=== PATIENT | female | born 1990 | race Two or more races ===

== ENCOUNTER 2024-04-29 19:24 | Emergency (ER) | payer MEDICAID, SELFPAY ==
[2024-04-29 19:27] VITALS: BP 176/103; PULSE 89; TEMP 36.8; O2SAT 97; BMI 39.8
[2024-04-29 19:37] VITALS: O2SAT 98
--- NOTE | 2024-04-29 19:52 | ED.ABDPAIN1 ---
HPI - Abdominal Pain General Chief Complaint: Abdominal Pain Stated Complaint: ABDOMINAL PAIN Time Seen by Provider: 04/29/24 19:27 Source: patient Mode of arrival: walk-in Limitations: no limitations History of Present Illness HPI narrative: 33-year-old female presents for abdominal pain. It is in her left lower quadrant and she has had this for about 10 to 12 days. She thought she was constipated so she took a laxative and she had a bowel movement and the pain did not go away. No vaginal bleeding or dysuria. No diarrhea or fever or injury or vomiting. The pain seems to be continuous. Related Data Home Medications ?Medication ?Instructions ?Recorded ?Confirmed metoprolol tartrate 100 mg tablet mg 04/29/24 Previous Rx's ?Medication ?Instructions ?Recorded acetaminophen 300 mg-codeine 30 mg 1 tab PO Q6H PRN pain 5 days #20 04/29/24 tablet tabs ibuprofen 800 mg tablet 800 mg PO Q8H PRN pain #20 tabs 04/29/24 Allergies Allergy/AdvReac Type Severity Reaction Status Date / Time No Known Drug Allergies Allergy Verified 04/29/24 19:32 Review of Systems ROS Narrative A ten point review of systems is negative except as noted above. PFSH PFSH Social History Little interest or pleasure in doing things: not at all Feeling down, depressed, or hopeless: not at all Exam Narrative Exam Narrative: Nurses note and vital signs reviewed and patient is not hypoxic. General: The patient appears in no apparent distress. Skin: Warm, dry, no pallor noted. There is no rash noted. Head: Normocephalic, atraumatic Eye: Normal conjunctiva, no drainage Ears, Nose, Mouth, and Throat: oral mucosa is moist. Nares patent. Cardiovascular: Regular Rate and Rhythm Respiratory: Patient is in no distress, no accessory muscle use, lungs are clear to auscultation, no wheezing, rales or rhonchi Back: non-tender GI: Soft, nondistended. Bowel sounds are normal. She has tenderness in the left lower quadrant without mass Musculoskeletal: The patient has no evidence of calf tenderness, no pitting edema, symmetrical pulses noted bilaterally Neurological: A&O, normal speech Psychiatric: Cooperative Constitutional Vital Signs, click to edit/add: Last Vital Signs Temp 98.2 F 04/29/24 19:27 Pulse 89 04/29/24 19:27 Resp 18 04/29/24 19:27 BP 176/103 H 04/29/24 19:27 Pulse Ox 98 04/29/24 19:37 O2 Del Method Room Air 04/29/24 19:37 Course Vital Signs Vital signs: Vital Signs Temperature 98.2 F 04/29/24 19:27 Pulse Rate 89 04/29/24 19:27 Respiratory Rate 18 04/29/24 19:27 Blood Pressure 176/103 H 04/29/24 19:27 Pulse Oximetry 97 04/29/24 19:27 Oxygen Delivery Method Room Air 04/29/24 19:27 Temperature 98.2 F 04/29/24 19:27 Pulse Rate 89 04/29/24 19:27 Respiratory Rate 18 04/29/24 19:27 Blood Pressure 176/103 H 04/29/24 19:27 Pulse Oximetry 98 04/29/24 19:37 Oxygen Delivery Method Room Air 04/29/24 19:37 MDM - Abdominal Pain MDM Narrative Medical decision making narrative: Blood work and urinalysis are essentially negative. CT scan findings are discussed with the patient and she will be prescribed pain medicine and referred to general surgery for follow-up. Treatment diagnosis and follow-up were discussed with the patient. She gives no history of any injury and I have no clinical suspicion of an infection. Differential Diagnosis Differential diagnosis: Likely abdominal pain, constipation and diverticulitis Lab Data Attestation: I reviewed the patient's lab results. Labs: Lab Results 04/29/24 04/29/24 Range/Units 19:38 19:50 WBC 9.9 (4.0-11.0) 10^3/uL RBC 4.88 (4.20-5.40) 10^6/uL Hgb 12.3 (12.0-16.0) g/dL Hct 38.3 (36.0-48.0) % MCV 78.5 L (81.0-99.0) fL MCH 25.2 L (26.7-34.0) pg MCHC 32.1 (29.9-35.2) g/dL RDW 14.6 (11.0-15.0) % Plt Count 431 (150-450) 10^3/uL MPV 9.5 (9.5-13.5) fL Neut % (Auto) 61.5 (43.0-75.0) % Lymph % (Auto) 32.0 (20.5-60.0) % [place] % (Auto) 4.1 (1.7-12.0) % Eos % (Auto) 1.7 (0.9-7.0) % Baso % (Auto) 0.5 (0.2-2.0) % Neut # (Auto) 6.1 (1.4-6.5) 10^3/uL Lymph # (Auto) 3.2 (1.2-3.8) 10^3/uL [place] # (Auto) 0.4 (0.3-0.8) 10^3/uL Eos # (Auto) 0.2 (0.0-0.7) 10^3/uL Baso # (Auto) 0.1 (0.0-0.1) 10^3/uL Abs Immat Gran (auto) 0.02 (0.00-0.03) 10^3/uL Imm/Tot Granulo (auto) 0.2 (0.0-0.5) % Sodium 139 (136-145) mmol/L Potassium 3.3 L (3.5-5.1) mmol/L Chloride 102 (98-107) mmol/L Carbon Dioxide 25.6 (21.0-32.0) mmol/L Anion Gap 14.7 BUN 8.0 (7.0-18.0) mg/dL Creatinine 0.86 (0.55-1.02) mg/dL Est GFR ( Amer) >60 (>=60 mL/min/1.73m^2) Est GFR (Non-Af Amer) >60 (>=60 mL/min/1.73m^2) BUN/Creatinine Ratio 9.3 Glucose 113 H (74-106) mg/dL Calcium 9.2 (8.5-10.1) mg/dL Serum HCG, Qual Negative (NEGATIVE) Urine Color Lt. yellow (YELLOW) Urine Clarity Clear (CLEAR) Urine pH 6.0 (5.0-9.0) Ur Specific [place] >=1.030 A (1.005-1.025) Urine Protein Trace (NEG/TRACE) mg/dL Urine Glucose (UA) Negative (NEGATIVE) mg/dL Urine Ketones Negative (NEGATIVE) mg/dL Urine Occult Blood Trace-i (NEGATIVE) Urine Nitrite Negative (NEGATIVE) Urine Bilirubin Negative (NEGATIVE) Urine Urobilinogen 0.2 (0.2-1.0) EU/dL Ur Leukocyte Esterase Negative (NEGATIVE) Urine RBC 0-2 (0-2) #/HPF Urine WBC 0-2 A (NONE SEEN) #/HPF Ur Squamous Epith Cells Few A (NONE/RARE) #/LPF Urine Crystals None seen (None Seen) #/HPF Urine Bacteria Trace A (NONE SEEN) #/HPF Urine Casts None seen (NONE SEEN) #/LPF Urine Mucus Trace A (NONE SEEN) Ur Culture Indicated? No Imaging Data CT scan - abdomen: Radiologist's impression: ITS Impressions Abdomen/Pelvis CT 04/29/24 20:51 IMPRESSION: 1. Nonobstructing 4 mm left lower pole stone. 2. There does appear to be heterogeneous appearance of the inferior left rectus abdominis muscle. Reference image 106. A possible 1.4 cm cystic lesion seen within the muscle. This could represent a hematoma or plegmon. Other etiologies are also possible with malignancy not categorically excluded but felt to be unlikely.. The etiology of this is not well delineated and further evaluation is advised with ultrasound to determine the internal characteristics. Electronically authenticated by: KASSANDRA ROBLES Date: 04/29/2024 23:02 Discharge Plan Discharge Chief Complaint: Abdominal Pain Clinical Impression: Abdominal wall pain Patient Disposition: Home, Self-Care Time of Disposition Decision: 23:09 Condition: Good Mode of Transportation: Private Vehicle Prescriptions / Home Meds: New acetaminophen-codeine 300-30 mg tablet 1 tab PO Q6H PRN (Reason: pain) 5 Days Qty: 20 0RF ibuprofen 800 mg tablet 800 mg PO Q8H PRN (Reason: pain) Qty: 20 0RF No Action metoprolol tartrate 100 mg tablet Print Language: Burundian Instructions: Abdominal Pain (ED) Referrals: Marvin Ramos MD [Physician] - 1 week PhysicianLuda-MD Estephania [Physician] - 1 week
[2024-04-29 19:58] LABS: Basophils Absolute Auto 0.1 10^3/uL (0.0-0.1); Basophils Percent Auto 0.5 % (0.2-2.0); Eosinophils Absolute Auto 0.2 10^3/uL (0.0-0.7); Eosinophils Percent Auto 1.7 % (0.9-7.0); Hematocrit 38.3 % (36.0-48.0); Hemoglobin 12.3 g/dL (12.0-16.0); Immature Granulocytes Abs Auto 0.02 10^3/uL (0.00-0.03); Immature Granulocytes Pct Auto 0.2 % (0.0-0.5); Lymphocytes Absolute Auto 3.2 10^3/uL (1.2-3.8); Mean Corpuscular HGB Conc 32.1 g/dL (29.9-35.2); Mean Corpuscular Hemoglobin 25.2 pg (26.7-34.0); Mean Corpuscular Volume 78.5 fL (81.0-99.0); Mean Platelet Volume 9.5 fL (9.5-13.5); Monocytes Absolute Auto 0.4 10^3/uL (0.3-0.8); Monocytes Percent Auto 4.1 % (1.7-12.0); Neutrophils Absolute Auto 6.1 10^3/uL (1.4-6.5); Neutrophils Percent Auto 61.5 % (43.0-75.0); Platelet Count 431 10^3/uL (150-450); Red Blood Count 4.88 10^6/uL (4.20-5.40); Red Cell Distribution Width 14.6 % (11.0-15.0); White Blood Count 9.9 10^3/uL (4.0-11.0)
[2024-04-29 20:02] LABS: Bilirubin Urine NEGATIVE (NEGATIVE); Blood Urine TRACE-I (NEGATIVE); Clarity Urine CLEAR (CLEAR); Color Urine LT. YELLOW (YELLOW); Glucose Urine UA NEGATIVE (NEGATIVE); Ketones Urine NEGATIVE (NEGATIVE); Leukocyte Esterase Urine NEGATIVE (NEGATIVE); Nitrite Urine NEGATIVE (NEGATIVE); Protein Urine TRACE mg/dL (NEG/TRACE); Specific Gravity Urine >=1.030 (1.005-1.025); Urobilinogen Urine 0.2 EU/dL (0.2-1.0)
[2024-04-29 20:08] LABS: Anion Gap 14.7; BUN Creatinine Ratio 9.3; Calcium 9.2 mg/dL (8.5-10.1); Carbon Dioxide 25.6 mmol/L (21.0-32.0); Chloride 102 mmol/L (98-107); Estimated GFR (African America >60 (>=60 mL/min/1.73m^2); Estimated GFR (Non-African Ame >60 (>=60 mL/min/1.73m^2); Glucose 113 mg/dL (74-106); Potassium 3.3 mmol/L (3.5-5.1); Sodium 139 mmol/L (136-145)
[2024-04-29 20:10] LABS: Bacteria Urine TRACE #/HPF (NONE SEEN); Cast Seen? NONE SEEN #/LPF (NONE SEEN); Crystals Seen? None Seen #/HPF (None Seen); Mucus Urine TRACE (NONE SEEN); RBC Urine 0-2 #/HPF (0-2); Squamous Epithelial Cell Urine FEW #/LPF (NONE/RARE); Urine Culture Indicated NO; WBC Urine 0-2 #/HPF (NONE SEEN)
[2024-04-29 20:17] LABS: HCG Qualitative NEGATIVE (NEGATIVE); Internal Control Within Normal Limits
--- NOTE | 2024-04-29 20:51 | CT_ITS ---
The [address] [address] Patient Name: MICHAEL MALCOLM MRN: [id number] date: 1990 Sex: F Assigned Patient Location: ER Current Patient Location: Accession/Order Number: [id number] Exam Date: 04/29/2024 21:27 Report Date: 04/29/2024 23:02 At the request of: BECCA EL Procedure: CT abdomen pelvis w con EXAM: CT Abdomen and Pelvis With Intravenous Contrast CLINICAL INDICATION: Left lower quadrant pain TECHNIQUE: Axial computed tomography images of the abdomen and pelvis with intravenous contrast. This CT exam was performed using one or more of the following dose reduction techniques: automated exposure control, adjustment of the mA and/or kV according to patient size, and/or use of iterative reconstruction technique. COMPARISON: February 2020 FINDINGS: LUNG BASES: Unremarkable. No mass. No consolidation. ABDOMEN: LIVER: Unremarkable. No mass. GALLBLADDER AND BILE DUCTS: Unremarkable. No calcified stones. No ductal dilation. PANCREAS: Unremarkable. No mass. No ductal dilation. SPLEEN: Unremarkable. No splenomegaly. ADRENALS: Unremarkable. KIDNEYS AND URETERS: 4 mm left lower pole stone STOMACH AND BOWEL: Unremarkable. No obstruction. No mucosal thickening. PELVIS: APPENDIX: The appendix is not definitely seen. No secondary signs of appendicitis. BLADDER: Unremarkable. No mass. REPRODUCTIVE: Unremarkable as visualized. ABDOMEN and PELVIS: INTRAPERITONEAL SPACE: Unremarkable. No free air. No significant fluid collection. BONES/JOINTS: No acute fracture. No dislocation. SOFT TISSUES: There does appear to be heterogeneous appearance of the inferior left rectus abdominis muscle. Reference image 106. A possible 1.4 cm cystic lesion seen within the muscle. Small umbilical hernia containing fat. VASCULATURE: Unremarkable. No abdominal aortic aneurysm. LYMPH NODES: Unremarkable. No enlarged lymph nodes. CT/CT abdomen pelvis w con IMPRESSION: 1. Nonobstructing 4 mm left lower pole stone. 2. There does appear to be heterogeneous appearance of the inferior left rectus abdominis muscle. Reference image 106. A possible 1.4 cm cystic lesion seen within the muscle. This could represent a hematoma or plegmon. Other etiologies are also possible with malignancy not categorically excluded but felt to be unlikely.. The etiology of this is not well delineated and further evaluation is advised with ultrasound to determine the internal characteristics. Electronically authenticated by: KASSANDRA ROBLES Date: 04/29/2024 23:02
[2024-04-29] MEDS: ACETAMINOPHEN 300 MG/ 30 MG CODEINE TABLET 1 TAB PO (23:38)
[2024-04-29 23:40] VITALS: BP 140/104; PULSE 62; O2SAT 98
== END 2024-04-29 23:42 | disposition home or self-care (01) ==
PROVIDERS: Emergency Provider Emergency Medicine; PCP Family Medicine
DX: R10.32 Left lower quadrant pain (principal); R93.5 Abnormal findings on diagnostic imaging of other abdominal regions, including retroperitoneum
CPT/HCPCS: 36415; 74177; 80048; 81001; 84703; 85025; 99285; Q9967

== ENCOUNTER 2025-01-23 20:05 | Emergency (ER) | payer MEDICAID, SELFPAY ==
--- OUTSIDE RECORDS SUMMARY | 2024-05-01 05:45 | XMS_ITS ---
Author Organization [facility] in [place] Address [address] [place] [address] Care Team Providers Care Wood Caulker Name Role Phone Eduardo Gonzalez Primary Care Provider REASON FOR VISIT ER FU--SIDE PAIN Encounters Encounter Location Date Provider Diagnosis [facility] [address] [place] [address] 05/01/2024 Eduardo Gonzalez Plan Of Treatment No Information Progress Notes * Dayanara PERDOMODOB: 9 (34 yo F)Acc No.[id number]:05/01/2024 UNLOCKED PROGRESS NOTE Progress Note Patient: Dayanara PEREZ :?Chuckie Gonzalez (TAMIKA), MDDOB:1990???Age: 33 Y???Sex:FemaleDate:05/01/2024Phone:[phone]:[address] [place] [id number] Subjective: * Chief Complaints: * 1 . ER FU--SIDE PAIN. * Medical History: Objective: * Vitals: Assessment: Plan: * Treatment: * * Electronic signature of Eduardo Gonzalez MD, [phone] on 01/23/2025 at 08:11 PM EST Sign off status: PendingVisit Status:?N/S N/C (No Show/No Charge) * Provider: Juliana Gonzalez MD (TTC) Date: 0 05/01/2024 Generated for Printing/Faxing/eTransmitting on:?01/23/2025 08:11 PM EST
--- OUTSIDE RECORDS SUMMARY | 2025-01-23 20:11 | XMS_ITS | CCD ---
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 Name Role Phone PHYSICIAN, DEFAULT Unavailable Unavailable PHYSICIAN, DEFAULT Unavailable Unavailable DR JOSE CRUZ HALL Attending Unavailable ISABEL, DR BILLINGSLEY Admitting Unavailable ISABEL, DR BILLINGSLEY Primary Care Unavailable DR JOSE CRUZ HALL Consulting Unavailable DR JOSE CRUZ HALL Attending Unavailable DR JOSE CRUZ HALL Admitting Unavailable DR JOSE CRUZ HALL Primary Care Unavailable JOSE CRUZ HALL Primary Care Unavailable Marvin CRANDALL Attending Unavailable Allergies Allergy ClassificationReported Allergen(s)Allergy TypeDate of OnsetReaction(s) Facility (1 source)No Known Medication Allergies; Translations: [No Known Medication Allergies]Propensity to adverse reactions (disorder)[facility] Medications Current Medications MedicationDrug Class(es)DatesSig (Normalized)Sig (Original)metoprolol tartrate 100 mg oral tablet (1 source)beta-Adrenergic BlockerStart: 43-09-3179idaf 1 tablet by mouth twice dailymetoprolol tartrate 100 mg Tab 100 mg = 1 tab(s), Oral, BID, Refills(s) 0 Start Date: 05/07/24 Status: Ordered Problems Problem ClassificationProblemDateDocumented DateEpisodic/ChronicCalculus of urinary tract (1 source)History of calculus of -86-3403HlktanqcVzbwyffnrbk; intervertebral disc disorders; other back problems (2 sources)Backache; Translations: [Low back pain]Onset: 98-96-8373Rbldihzx Unclassified (1 source)Low back pain, unspecified; Translations: [Low back pain, unspecified] Onset: 02-06-2024 Results Test NameValueInterpretationReference RangeFacilityHCG ( test) Ql (U)on 54-43-8584Vgij HCG ( test) Ql (U)NegativeNormalNEGProMedica Broadway Community HospitalComment on above:Performed By: #### 2106-3 #### [facility] ([id number]) [address] [place] [address], [place] [address]EZR MACROSCOPIC NURon 61-95-3345JESWHCPII NURNegativeNormalNEG [facility] Broadway Community HospitalComment on above:Performed By: #### NUM #### [facility] ([id number]) [address] [place] [address], [place] [address]USXMB/HGB NURTraceAbnormalNEGProBaylor Scott & White Medical Center – GrapevineComment on above:Performed By: #### NUM #### [facility] ([id number]) [address] [place] [address], [place] [address]DPUWHOZ NURNegativeNormalNEGProBaylor Scott & White Medical Center – GrapevineComment on above:Performed By: #### NUM #### [facility] ([id number]) [address] [place] [address], [place] [address]FEIHQIR NURNegativeNormalNEGProMedica Broadway Community HospitalComment on above:Performed By: #### NUM #### [facility] ([id number]) [address] [place] [address], [place] [address]GFZOMKBIF ESTERASE NURNegativeNormalNEGProBaylor Scott & White Medical Center – GrapevineComment on above:Performed By: #### NUM #### [facility] ([id number]) [address] [place] [address], [place] [address]GNQWVDR NURNegativeNormalNEGProMediKentfield Hospital San FranciscoComment on above:Performed By: #### NUM #### [facility] ([id number]) [address] [place] [address], [place] [address]JX NUR6.1Qnjbnk0.0-8.5ProMedica Broadway Community HospitalComment on above:Performed By: #### NUM #### [facility] ([id number]) [address] [place] [address]HPFLTCW GBY930 mg/dLAbnormalNEGSelect Medical [facility]Health Rehabilitation Hospital Comment on above:Performed By: #### NUM #### [facility] ([id number]) [address] [place] [address]AMPKSYOY GRAVITY EDIE>=1.896Cidqzy8.003-1.035[facility] HospitalComment on above:Performed By: #### NUM #### [facility] ([id number]) [address] [place] [address]RUQQVSSCRBOV NUR0.2 eu/dLNormal<1.1PSelect Medical [facility] [place] Comment on above:Performed By: #### NUM #### [facility] ([id number]) [address] [place] [address]GV SPINE LUMBAR 2 OR 3 VWSon 76-41-3653HE SPINE LUMBAR 2 OR 3 VWSXR SPINE LUMBAR 2 OR 3 VWS XR SPINE LUMBAR 2 OR 3 VWS IMPRESSION: Clinical Information: back pain Comparison: None. * No fracture. Normal alignment. No marked degenerative changes. No spondylolysis. Finalized by Zohaib Joe MD on 02/06/2024 6:25 PMNormalProBaylor Scott & White Medical Center – GrapevineINSULINon 48-94-6797Deazyil18.0 uIU/mLNormal2.6-24.9[facility]pelier HospitalComment on above:Performed By: #### INSULIN #### [facility] [address] [place] [address] Dr. Claudia Tirado AUTO DIFFon 62-77-7592ZHSJ #0.0 103/ulNormal0.0-0.1The [facility] HospitalComment on above:Performed By: #### CBC #### [facility] [address] [place] [address] Dr. Claudia WoodwardBasophils/100 WBC (Bld)0.5 %Normal0.2-2.0[facility] Comment on above:Performed By: #### CBC #### [facility] [address] [place] [address] Dr. Claudia Olivas #0.1 103/ulNormal0.0-0.7The [facility] HospitalComment on above: Performed By: #### CBC #### [facility] [address] [place] [address] Dr. Claudia Talbertosinophils/100 WBC (Bld)0.6 %Critically low0.9-7.0The [facility] HospitalComment on above:Performed By: #### CBC #### [facility] [address] [place] [address] Dr. Claudia Talbertrythrocyte distribution width (RBC) [Ratio]15.0 %Rtyyfa57.0-15.0 The [facility] on above:Performed By: #### CBC #### [facility] [address] [place] [address] Dr. Claudia WoodwardHematocrit (Bld) [Volume fraction]41.7 %Xtesmf17.0-48.0The [facility] HospitalComment on above:Performed By: #### CBC #### [facility] [address] [place] [address] Dr. Claudia WoodwardHemoglobin (Bld) [Mass/Vol]13.2 g/zWOhnfna14.0-16.0The [facility] Hospitalment on above:Performed By: #### CBC #### [facility] [address] [place] [address] Dr. Claudia Garcia #0.03 10e3/ulNormal0.00-0.03The [facility] HospitalComment on above:Performed By: #### CBC #### [facility] [address] [place] [address] Dr. Claudia Garcia %0.4 %Normal0.0-0.5The [facility] on above: Performed By: #### CBC #### [facility] [address] [place] [address] Dr. Claudia OneilH #2.3 103/ulNormal1.2-3.8The [facility]unch HospitalComment on above:Performed By: #### CBC #### [facility] [address] [address] [address] Claudia Francismphocytes/100 WBC (Bld)27.3 %Mcjplp90.5-60.0The [facility] HospitalComment on above:Performed By: #### CBC #### [facility] [address] [address] [address] Claudia EscotoUAL DIFF REQNONormalThe [facility] HospitalComment on above: Performed By: #### CBC #### [facility] [address] [address] [address] Claudia Woodruff (RBC) [Entitic mass]25.3 pgCritically low26.7-34.0The [facility] HospitalComment on above:Performed By: #### CBC #### [facility] [address] [place] [address] Dr. Claudia Woodruff (RBC) [Mass/Vol]31.7 g/kGCvclzg03.9-35.2The [facility] HospitalComment on above:Performed By: #### CBC #### [facility] [address] [place] [address] Dr. Claudia WoodruffV (RBC) [Entitic vol]79.9 fLCritically low81.0-99.0The [facility] HospitalComment on above:Performed By: #### CBC #### [facility] [address] [place] [address] Dr. Claudia Dye #0.3 103/ulNormal0.3-0.8The [facility] HospitalComment on above:Performed By: #### CBC #### [facility] [address] [place] [address] Dr. Claudia Allanocytes/100 WBC (Bld)3.6 %Normal1.7-12.0The [facility] on above:Performed By: #### CBC #### [facility] [address] [place] [address] Dr. Claudia Ordoñez #5.7 103/ulNormal1.4-6.5The [facility] Hospitalment on above:Performed By: #### CBC #### [facility] [address] [address] [address] Claudia Gallegosutrophils/100 WBC (Bld)67.6 %Jyyvmo09.0-75.0The [facility] on above:Performed By: #### CBC #### [facility] [address] [address] [address] Claudia Rocklet mean volume (Bld) [Entitic vol]9.4 fLCritically low 9.5-13.5The [facility] HospitalComascension borgess allegan hospital on above:Performed By: #### CBC #### [facility] [address] [place] [address] Dr. Claudia KimT409 103/eyZgbyxg189-991Knk [facility] on above: Performed By: #### CBC #### [facility] [address] [place] [address] Dr. Claudia WoodwardRBC5.22 106/ulNormal4.20-5.40The [facility] on above:Performed By: #### CBC #### [facility] [address] [place] [address] Dr. Claudia WoodwardWBC8.4 103/ulNormal4.0-11.0The [facility] on above: Performed By: #### CBC #### [facility] [address] [place] [address] Dr. Claudia Qureshi THYROXINE INDEX T7on 24-27-2597RCT0.83Arfwwy6.30-4.50The [facility] on above:Performed By: #### T7, TSH, CMP, LIPID #### [facility] [address] [place] [address] Dr. Claudia WoodwardT3U27.0 %Critically low30.0-39.0The [facility] on above:Performed By: #### T7, TSH, CMP, LIPID #### [facility] [address] [place] [address] Dr. Claudia Landa4 [Mass/Vol]8.30 ug/dLNormal4.80-13.90The [facility] Comment on above:Performed By: #### T7, TSH, CMP, LIPID #### [facility] [address] [place] [address] Dr. Claudia WoodwardGLYCOHEMOGLOBIN A1Con 01-28-1578GWX RECOMMENDATIONSEE BELOWMckitrick HospitalComment on above:Result Comment: ADA RECOMMENDED LIMIT 4.0 - 6.0 ADA THERAPEUTIC TARGET < 7.0 ACTION SUGGESTED > 7.0Performed By: #### A1C #### [facility] [address] [place] [address] Dr. Claudia WoodwardGlucose [Mass/Vol]126 mg/dLNoEast Liverpool City HospitalComment on above:Performed By: #### A1C #### [facility] [address] [place] [address] Dr. Claudia WoodwardHbA1c (Bld) [Mass fraction]6.0 %Normal4.5-6.2The [facility] HospitalComment on above:Performed By: #### A1C #### [facility] [address] [place] [address] Dr. Claudia Cruz 25-35-6855Prhh [Mass/Vol]41.0 ug/dLCritically low 50.0-170.0The [facility] HospitalComment on above:Performed By: #### IRON #### [facility] [address] [place] [address] Dr. Claudia WoodwardLIPID PROFILEon 60-47-7494BSND-HDL RATIO NORMSEE BELOWLouis Stokes Cleveland VA Medical CenterComment on above:Result Comment: 3.3 - 4.4 LOW RISK 4.4 - 7.1 AVERAGE RISK 7.1 - 11.0 MODERATE RISK >11.0 HIGH RISKPerformed By: #### T7, TSH, CMP, LIPID #### [facility] [address] [place] [address] Dr. Claudia WoodwardCholesterol [Mass/Vol]284 mg/dLCritically high<=200The [facility] HospitalComment on above:Performed By: #### T7, TSH, CMP, LIPID #### [facility] [address] [address] [address] Claudia Gandhiesterol in HDL [Mass/Vol]47 mg/fPBwsbjm57-61Bwh [facility] on above:Performed By: #### T7, TSH, CMP, LIPID #### [facility] [address] [address] [address] Claudia Gandhiesterol in LDL [Mass/Vol]203.0 mg/dLNoEast Liverpool City HospitalComascension borgess allegan hospital on above:Performed By: #### T7, TSH, CMP, LIPID #### [facility] [address] [place] [address] Dr. Claudia Ny.total/Cholesterol in HDL [Mass ratio]6.0 {ratio} NormalThe [facility] on above:Performed By: #### T7, TSH, CMP, LIPID #### [facility] [address] [place] [address] Dr. Claudia Torres NORMAL> or = 60 mg/dl - LOW CARDIOVASCULAR RISK <40 mg/dl - HIGH CARDIOVASCULAR RISKNoAdena Health System on above:Performed By: #### T7, TSH, CMP, LIPID #### [facility] [address] [place] [address] Dr. Claudia Prince CALC NORMALSEE BELOWLouis Stokes Cleveland VA Medical CenterComascension borgess allegan hospital on above:Result Comment: <100 mg/dl OPTIMAL 100 - 129 mg/dl NEAR OR ABOVE OPTIMAL 130 - 159 mg/dl BORDERLINE HIGH 160 - 189 mg/dl HIGH >190 mg/dl VERY HIGH Performed By: #### T7, TSH, CMP, LIPID #### [facility] [address] [place] [address] Dr. Claudia WoodwardTriglyceride [Mass/Vol]170 mg/dLCritically high<=150[facility] on above:Performed By: #### T7, TSH, CMP, LIPID #### [facility] [address] [place] [address] Dr. Claudia HolguinLDL CALC34.0 mg/dLNoEast Liverpool City HospitalComment on above: Performed By: #### T7, TSH, CMP, LIPID #### [facility] [address] [place] [address] Dr. Claudia Ovalle 14(COMP METB)on 85-10-4307Eeohndf [Mass/Vol]3.6 g/dLNormal 3.4-5.0The [facility] HospitalComment on above:Performed By: #### T7, TSH, CMP, LIPID #### [facility] [address] [place] [address] Dr. Claudia WoodwardAlbumin/Globulin [Mass ratio]0.8 {ratio}NormalThe [facility] HospitalComment on above:Performed By: #### T7, TSH, CMP, LIPID #### [facility] [address] [place] [address] Dr. Claudia Coronado [Catalytic activity/Vol]113 U/ZJqaubi16-174Mox [facility] HospitalComment on above:Performed By: #### T7, TSH, CMP, LIPID #### [facility] [address] [place] [address] Dr. Claudia Mojica [Catalytic activity/Vol]48 U/HVyvzns62-63Oin [facility] HospitalComment on above:Performed By: #### T7, TSH, CMP, LIPID #### [facility] [address] [place] [address] Dr. Claudia Rodriguez gap [Moles/Vol]11.2 mmol/LNormalThe [facility] Comment on above:Performed By: #### T7, TSH, CMP, LIPID #### [facility] [address] [place] [address] Dr. Claudia Elam [Catalytic activity/Vol]25 U/NAbaefz92-38Kky [facility] HospitalComment on above:Performed By: #### T7, TSH, CMP, LIPID #### [facility] [address] [place] [address] Dr. Claudia Lucasirubin [Mass/Vol]0.4 mg/dLNormal0.2-1.0The [facility] Comment on above:Performed By: #### T7, TSH, CMP, LIPID #### [facility] [address] [place] [address] Dr. Claudia WoodwardCalcium [Mass/Vol]9.1 mg/dLNormal8.5-10.1The [facility] Comment on above:Performed By: #### T7, TSH, CMP, LIPID #### [facility] [address] [address] [address] Claudia WoodwardChloride [Moles/Vol]102 mmol/XWcsqux15-023Hsx [facility] Comment on above:Performed By: #### T7, TSH, CMP, LIPID #### [facility] [address] [address] [address] Claudia WoodwardCO2 [Moles/Vol]28.7 mmol/PQixcss36.0-32.0The [facility] Comment on above:Performed By: #### T7, TSH, CMP, LIPID #### [facility] [address] [address] [address] Claudia WoodwardCreatinine [Mass/Vol]0.80 mg/dLNormal0.55-1.02The [facility] HospitalComment on above:Performed By: #### T7, TSH, CMP, LIPID #### [facility] [address] [address] [address] Claudia TalbertGFR-AF OMANI>60Normal>=60The [facility] HospitalComment on above:Performed By: #### T7, TSH, CMP, LIPID #### [facility] [address] [address] [address] Claudia TalbertGFR-NON AF OMANI>60Normal>=60The [facility] HospitalComment on above:Performed By: #### T7, TSH, CMP, LIPID #### [facility] [address] [address] [address] Claudia WoodwardGlobulin (S) [Mass/Vol]4.7 g/dLNormalThe [facility] HospitalComment on above:Performed By: #### T7, TSH, CMP, LIPID #### [facility] [address] [address] [address] Claudia WoodwardGlucose [Mass/Vol]90 mg/vJPvsaif06-536Rvt [facility] Comment on above:Performed By: #### T7, TSH, CMP, LIPID #### [facility] [address] [address] [address] Claudia WoodwardPotassium [Moles/Vol]3.9 mmol/LNormal3.5-5.1The [facility] Comment on above:Performed By: #### T7, TSH, CMP, LIPID #### [facility] [address] [address] [address] Claudia WoodwardProtein [Mass/Vol]8.3 g/dLCritically high6.4-8.2The [facility] HospitalComment on above:Performed By: #### T7, TSH, CMP, LIPID #### [facility] [address] [address] [address] Claudia Garciadium [Moles/Vol]138 mmol/AAsuuph687-368Qen [facility] Comment on above:Performed By: #### T7, TSH, CMP, LIPID #### [facility] [address] [address] [address] Claudia WoodwardUrea nitrogen [Mass/Vol]11.0 mg/dLNormal7.0-18.0The [facility] HospitalComment on above:Performed By: #### T7, TSH, CMP, LIPID #### [facility] [address] [address] [address] Claudia Rod nitrogen/Creatinine [Mass ratio]13.8 mg/mgNormalThe [facility] HospitalComment on above:Performed By: #### T7, TSH, CMP, LIPID #### [facility] [address] [place] [address] Dr. Claudia Jose 26-94-4415PDR4.849 uIU/mLNormal0.358-3.740The [facility] HospitalComment on above:Performed By: #### T7, TSH, CMP, LIPID #### [facility] [address] [place] [address] Dr. Claudia Woodward Encounters Encounter DateEncounter TypeCare ProviderFacilityStart: 05-15-2024 End: 62-09-2737iwzytozkewQnyomwh R NILLFacility:[facility] Centertart: 05-15-2024 End: 60-16-0898Jvadjgy encounter procedureMichael R NILL [phone]-EnioqC[facility] Hospital [facility] Start: 55-75-9319mpxbmmrrtyDtduhua NILLFacility:[place]Healthtart: 68-48-0976lnsxdbuanuIyokfce NILLFacility: JustinFLtart: 02-06-2024 End: 34-00-8786Wbenvkusv department patient visitDOUGLAS M HOYProMedica Noatak HospitalStart: 93-62-1378qlxxstjaiuPK JOSE CRUZ HOYFacility:C1Febow: 10-13-2021 Encounter for general adult medical examination without abnormal findingsDR JOSE CRUZ HOYThe [facility] & Brentwood Hospitaltart: 10-08-2021 End: 70-63-2855ylltnwdqxoOM JOSE CRUZ HOYFacility:Z4Evvyf: 10-08-2021 End: 98-09-2540Byzcecnrq for general adult medical examination without abnormal findingsDR JOSE CRUZ HOYFacility:F0Cahyu: 03-24-2018 End: 81-46-7186Ftweoat encounter procedureDEFAULT PHYSICIANFacility:[facility]ENTERtart: 03-24-2018 End: 58-21-0606Dqcacej encounter procedureDEFAULT PHYSICIANFacility:[facility] Immunizations Immunization DateImmunizationNotesCare MdqwcpihZcxiofdz73-99-1303PTSM-WdZ-0 (COVID-19) mRNA-1273 vaccineMichael NILL [phone]-EjozkCherrington Hospital [facility] 27-08-1221MYSO-CoV-2 (COVID-19) mRNA-1273 vaccineMichael NILL [phone]-UpyzaTrumbull Memorial Hospital Comment on above:Result Comment: 2024-05-07: DZR92-84-9471AAKT-DpC-4 (COVID-19) mRNA-1273 vaccineMichael NILL [phone]-NuaxnCherrington Hospital [facility] [place] Comment on above:Result Comment: 2024-05-07: ALL Payers DatePayer CategoryPayerPolicy [id number] 1991Unknown [id number]-[id number] [id number]-czjMthavwh Social History DateTypeDetailFacilityTobacco smoking statusNo Smoking Status EnteredH[facility] Sex Assigned At BirthFeMount St. [facility] Evaluation + Plan note Note Date & TypeNoteFacilityEvaluation + Plan note No data available for this section [facility] Discharge instructions Note Date & TypeNoteFacilityHospital Discharge instructions No data available for this section [facility] Progress note Note Date & TypeNoteFacilityProgress note No data available for this section [facility] Summary Purpose Family History No Family History Records FoundNo Family History Records FoundNo Family History Records Found No data available for this section No Family History Records Found Advance Directives No Advanced Directives Records FoundNo Advanced Directives Records FoundNo Advanced Directives Records FoundNo Advanced Directives Records Found Additional Source Comments INFORMATION SOURCE (unrecogn ized section and content) DATE CREATED AUTHOR 03/25/2018 [facility] DATE CREATED AUTHOR AUTHOR'S ORGANIZ ATION 10/17/2021 [facility] DATE CREATED AUTHOR AUTHOR'S ORGANIZ ATION 02/09/2024 [facility] DATE CREATED AUTHOR AUTHOR'S ORGANIZ ATION 05/17/2024 [facility] FOR RECORDS PERTAINING TO PATIENTS WHO ARE OR HAVE BEEN ENROLLED IN A CHEMICAL DEPENDENCY/SUBSTANCEABUSE PROGRAM, SOME INFORMATION MAY BE OMITTED. This clinical summary was aggregated from multiple sources. Caution should be exercised in using it in the provision of clinical care. This summary normalizes information from multiple sources, and as a consequence, information in this document may materially change the coding, format and clinical context of patient data. In addition, data may be omitted in some cases. CLINICAL DECISIONS SHOULD BE BASED ON THE PRIMARY CLINICAL RECORDS. [employer] [facility]. provides no warranty or guarantee of the accuracy or completeness of information in this document.
[2025-01-23 20:12] VITALS: BP 185/104; PULSE 75; TEMP 37.1; O2SAT 98; BMI 39.1
--- OUTSIDE RECORDS SUMMARY | 2025-01-23 20:12 | XMS_ITS | Patient Health Record ---
Author Organization [facility] in [place] Address [address] [place] [address] Care Team Providers Care Building Services Technician Name Role Phone Eduardo Gonzalez Primary Care Provider [phone] Allergies No Known Allergies Results Component Value Reference Range Notes CT abdomen pelvis w con Reviewed date:04/30/2024 01:09:41 PM Interpretation: Performing Lab: Notes/Report: Source Facility: [place] [address] CT Scan Report Signed Patient: DAYANARA PERDOMO MR#: [id number] : 1990 Acct:[id number] Age/Sex: 33 / F ADM Date: 04/29/24 Loc: ER Attending Dr: Ordering Physician: Becca El M.D. Date of Service: 04/29/24 Procedure(s): CT abdomen pelvis w con Accession Number(s): [id number] cc: Chuckie Gonzalez M.D. [place] [id number] Patient Name: DAYANARA PERDOMO MRN: [id number] date: 1990 Sex: F Assigned Patient Location: ER Current Patient Location: ER Accession/Order Number: [id number] Exam Date: 04/29/2024 21:27 Report Date: 04/29/2024 23:02 At the request of: BECCA EL Procedure: CT abdomen pelvis w con EXAM: CT Abdomen and Pelvis With Intravenous Contrast CLINICAL INDICATION: Left lower quadrant pain TECHNIQUE: Axial computed tomography images of the abdomen and pelvis with intravenous contrast. This CT exam was performed using one or more of the following dose reduction techniques: automated exposure control, adjustment of the mA and/or kV according to patient size, and/or use of iterative reconstruction technique. COMPARISON: February 2020 FINDINGS: LUNG BASES: Unremarkable. No mass. No consolidation. ABDOMEN: LIVER: Unremarkable. No mass. GALLBLADDER AND BILE DUCTS: Unremarkable. No calcified stones. No ductal dilation. PANCREAS: Unremarkable. No mass. No ductal dilation. SPLEEN: Unremarkable. No splenomegaly. ADRENALS: Unremarkable. KIDNEYS AND URETERS: 4 mm left lower pole stone STOMACH AND BOWEL: Unremarkable. No obstruction. No mucosal thickening. PELVIS: APPENDIX: The appendix is not definitely seen. No secondary signs of appendicitis. BLADDER: Unremarkable. No mass. REPRODUCTIVE: Unremarkable as visualized. ABDOMEN and PELVIS: INTRAPERITONEAL SPACE: Unremarkable. No free air. No significant fluid collection. BONES/JOINTS: No acute fracture. No dislocation. SOFT TISSUES: There does appear to be heterogeneous appearance of the inferior left rectus abdominis muscle. Reference image 106. A possible 1.4 cm cystic lesion seen within the muscle. Small umbilical hernia containing fat. VASCULATURE: Unremarkable. No abdominal aortic aneurysm. LYMPH NODES: Unremarkable. No enlarged lymph nodes. CT/CT abdomen pelvis w con IMPRESSION: 1. Nonobstructing 4 mm left lower pole stone. 2. There does appear to be heterogeneous appearance of the inferior left rectus abdominis muscle. Reference image 106. A possible 1.4 cm cystic lesion seen within the muscle. This could represent a hematoma or plegmon. Other etiologies are also possible with malignancy not categorically excluded but felt to be unlikely.. The etiology of this is not well delineated and further evaluation is advised with ultrasound to determine the internal characteristics. Electronically authenticated by: KASSANDRA ROBLES Date: 04/29/2024 23:02 Dictated By: Kassandra Robles M.A. Signed By: 04/29/242303 DD/ 01 TD/TT: Manager Perioperative: Reason For Referral No Information Medications Medication SIG (Take, Route, Frequency, Duration) Notes Start Date End Date Status Metoprolol Tartrate 100 MG TAKE 1 TABLET BY MOUTH TWICE A DAY WITH FOOD; Duration: 30 ActiveCitalopram Hydrobromide 20 MGTAKE 1 TABLET BY MOUTH DAILY; Duration: 30 Active Social History Tobacco Use: Social History Observation Description Date Details (start date - stop date) Never Smoker NA - NA Tobacco Use/Smoking Question Answer Notes Patient is a nonsmoker Alcohol Screen (Audit-C) Question Answer Notes Did you have a drink containing alcohol in the p ast year? No [id number]WAG-K (Standard) Question Answer Notes Did you have a drink containing alcohol in the p ast year? No Kyyzag1JubjwlygdbwazsMgoynlxf Problems Problem Type SNOMED Code ICD Code Onset Dates Problem Status W/U Status Risk Notes Problem Fatigue (73197250) Fatigue (R53.83) ActiveconfirmedProblemEssential hypertension (04778129)Essential hypertension (I10)ActiveconfirmedProblemDyspnea (622508268)Dyspnea (R06.00)Activeconfirmed ProblemEczema (76071311)Eczema (L30.9)ActiveconfirmedProblemAcute sinusitis (08792081)Acute sinusitis (J01.90)ActiveconfirmedProblemAnkle sprain (08268568) Ankle sprain (S93.409A)ActiveconfirmedProblemGastritis (9158292)Gastritis (K29.70)ActiveconfirmedProblemWell adult (721834810)Well adult (Z00.00)Active confirmedProblemTension headache (890447392)Tension headache (G44.209)Active confirmedProblemLeft lower quadrant pain (730874492)Abdominal pain, LLQ (R10.32) ActiveconfirmedProblemAgoraphobia with panic attacks (761128935)Agoraphobia with panic attacks (F40.01)ActiveconfirmedProblemGastro-esophageal reflux disease (708113519)Gastro-esophageal reflux disease (K21.9)ActiveconfirmedProblem Contusion of foot (80809687)Contusion, foot (S90.30XA)ActiveconfirmedProblem Peripheral vertigo (14276603)Vertigo, peripheral (H81.399)ActiveconfirmedProblem Hematoma (09578767)Hematoma (T14.8XXA)ActiveconfirmedProblemLow back pain (649633136)Low back pain, unspecified (M54.50)ActiveconfirmedProblemHeadache (40649631)Headache (R51.9)Activeconfirmed Vital Signs Blood pressure diastolic 78 mm Hg 10/29/2024 Jbxvbv49 in10/29/2024lood pressure lbqvuqiz951 mm Hg10/29/20246297Qxmfvg243.2 lbs 10/29/2024BMI41.44 kg/m210/29/2024 Encounters Encounter Location Date Provider Diagnosis [facility] [address] [place] [address] 05/02/2024 Eduardo Hoy Hematoma T14.8XX A [facility] [address] [place] [address] 10/29/2024 Eduardo Hoy Headache R51.9 Assessments Encounter Date Diagnosis (ICD Code) Assessment Notes Treatment Notes Treatment Clinical Notes Section Notes 05/02/2024 Hematoma (ICD-10 - T14.8XXA) 10/29/2024Headache (ICD-10 - R51.9)trial double dose zyrye - not better - neesd mri brain10/29/2024OtherTake NSAIDs as needed for pain. Discussed avoiding headache triggers and improiving diet and sleep habits to prevent headaches. Plan Of Treatment Pending Test Test Name Order Date XR Knee LT (3 views) * 08/04/2022 Insurance Providers Payer Name Payer Address Payer Phone Subscriber Number Group Number Insured Name Patient Relationship to Insured Coverage Start Date Coverage End Date [employer] [place] [employer] [address] [address] [place] [address] [id number] Orquidea Perdomoelf - patient is the [id number] 2022 Medical (General) History Medical History History ICD Code Well adult Z00.00 Agoraphobia with panic attacks F40.01 Gastro-esophageal reflux disease K21.9 Acute sinusitis J01.90 Dyspnea R06.00 Essential hypertension I10 Contusion, foot S90.30XA Fatigue R53.83 Eczema L30.9 Vertigo, peripheral H81.399 Low back pain, unspecified M54.50 Ankle sprain S93.409A Tension headache G44.209 Abdominal pain, LLQ R10.32 Gastritis K29.70 Surgical History Surgery Date(Month/Year) denies Hospitalization History Reason Date(Month/Year) denies
--- NOTE | 2025-01-23 20:25 | ED_ITS ---
HPI - Dental/Oral General Chief complaint: Dental/Oral Stated complaint: DENTAL PAIN Time Seen by Provider: 01/23/25 20:22 Source: patient Mode of arrival: walk-in Limitations: no limitations History of Present Illness HPI Narrative: 34 year old female presents to the ED for right lower dental pain. 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 States she took one 200 mg Motrin tablet after the onset. Reports applying the OTC dental cement to the tooth. Denies fever, chills, difficulty swallowing. The pain is worse with inspiration. Denies chance of . Related Data Home Medications ?Medication ?Instructions ?Recorded ?Confirmed metoprolol tartrate 100 mg tablet 100 mg 04/29/24 citalopram 20 mg tablet mg 01/23/25 Previous Rx's ?Medication ?Instructions ?Recorded ibuprofen 800 mg tablet 800 mg PO Q8H PRN pain #20 t abs 04/29/24 amoxicillin 500 mg capsule 500 mg PO TID 10 days #30 c aps 01/23/25 hydrocodone 5 mg-acetaminophen 325 1 tab PO Q8H PRN pa in 3 days #9 01/23/25 mg tablet tabs ibuprofen 800 mg tablet 800 mg PO Q8H PRN pain #14 t abs 01/23/25 Allergies Allergy/AdvReac Type Severity Reaction Status Date / Time No Known Drug Allergies Allergy Verified 01/23/25 20:16 Review of Systems ROS Constitutional Denies: fever or chills Ears, nose, mouth, and throat Reports: mouth pain; Denies: throat pain, neck pain or throat swelling Cardiovascular Denies: chest pain Respiratory Denies: shortness of breath Neurological Denies: headache, weakness in extremities or dizziness PFSH PFSH Social History Little interest or pleasure in doing things: not at all Feeling down, depressed, or hopeless: not at all Exam Constitutional Vital Signs, click to edit/add: Last Vital Signs Temp 98.7 F 01/23/25 20:12 Pulse 75 01/23/25 20:12 Resp 18 01/23/25 20:12 BP 185/104 H 01/23/25 20:12 Pulse Ox 98 01/23/25 20:12 HENMT Common normals: external ears normal and moist oral mucous membranes Mouth: oral and palatal mucosa normal, lip normal and tongue normal Teeth and gingiva: caries Throat: posterior oropharynx normal, tonsils normal and uvula midline Other: No dental abscess noted. No facial swelling. No swelling to floor of mouth. Pt speaking in full sentences, handling secretions well. Eye Common normals: conjunctivae normal and no scleral icterus Neck & C-Spine Common normals: supple Chest Chest: symmetrical chest wall rise Respiratory Common normals: normal respiratory effort Effort & inspection: able to speak in complete sentences and symmetric chest movement Cardio Common normals: regular rate Neuro Common normals: oriented x3, CN's II-XII intact bilaterally and moves all extremities Sensorium/orientation: awake and alert Speech: speech normal Course Vital Signs Vital signs: Vital Signs Temperature 98.7 F 01/23/25 20:12 Pulse Rate 75 01/23/25 20:12 Respiratory Rate 18 01/23/25 20:12 Blood Pressure 185/104 H 01/23/25 20:12 Pulse Oximetry 98 01/23/25 20:12 Temperature 98.7 F 01/23/25 20:12 Pulse Rate 75 01/23/25 20:12 Respiratory Rate 18 01/23/25 20:12 Blood Pressure 185/104 H 01/23/25 20:12 Pulse Oximetry 98 01/23/25 20:12 MDM - Dental/Oral MDM Narrative Medical decision making narrative: OARRS was reviewed. She was medicated with amoxicillin, Toradol, and Percocet here. Prescriptions were provided for Motrin, amoxicillin, and norco. She reported she has a dentist for follow up and will call in the morning. She was accompanied by family for a ride home. Return to the ED for worsening symptoms. She is aware her BP was elevated here and will need to be rechecked. Medical Records Attestation: I reviewed the patient's medical records. Discharge Plan Discharge Chief Complaint: Dental/Oral Clinical Impression: Toothache Patient Disposition: Home, Self-Care Time of Disposition Decision: 20:29 Condition: Good Mode of Transportation: Private Vehicle Prescriptions / Home Meds: New amoxicillin 500 mg capsule 500 mg PO TID 10 Days Qty: 30 0RF ibuprofen 800 mg tablet 800 mg PO Q8H PRN (Reason: pain) Qty: 14 0RF hydrocodone-acetaminophen 5-325 mg tablet 1 tab PO Q8H PRN (Reason: pain) 3 Days Qty: 9 0RF No Action metoprolol tartrate 100 mg tablet 100 mg ibuprofen 800 mg tablet 800 mg PO Q8H PRN (Reason: pain) Qty: 20 0RF citalopram 20 mg tablet Print Language: [place] Helen[place] Instructions: Toothache (ED) Additional Instructions: Return to the ED for worsening symptoms. Referrals: Chuckie Gonzalez MD [Primary Care Provider, Family Practice] - 1 week
--- NOTE | 2025-01-23 20:27 | PC.NURSE ---
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
[2025-01-23] MEDS: OXYCODONE HCL/ACETAMINOPHEN 5MG/325MG 1 TAB PO (21:03)
[2025-01-23] MEDS: AMOXICILLIN 500 MG CAPSULE PO (21:03)
[2025-01-23] MEDS: KETOROLAC TROMETHAMINE 30 MG/ML VIAL IM (21:03)
== END 2025-01-23 21:10 | disposition home or self-care (01) ==
PROVIDERS: Emergency Provider Emergency Medicine; PCP Family Medicine
DX: K08.89 Other specified disorders of teeth and supporting structures (principal)
CPT/HCPCS: 96372; 99284; J1885